=== PATIENT | female | born 2005 | race Caucasian/White ===

== ENCOUNTER 2024-11-08 15:49 | Emergency (ER) | payer OTHER, SELFPAY ==
[2024-11-08 16:13] VITALS: BP 124/74; PULSE 76; RESP 14; TEMP 36.1; O2SAT 99; BMI 33.4
[2024-11-08 20:10] VITALS: BP 134/72; PULSE 86; RESP 16; TEMP 36.2; O2SAT 100
--- NOTE | 2024-11-08 20:12 | PC.NURSE ---
Pt states that she has a history of ovarian cysts. She is from [place] and states that it has been over 1 year since she has had a cyst. Normally she gets an ultrasound to rule out.
[2024-11-08 21:26] LABS: Add Manual Diff / Slide Review NO; Hematocrit 39.0 % (36-46); Hemoglobin 13.8 g/dL (12.0-16.0); Lymphocytes Absolute Auto 3100 /uL (1100-4500); Mean Corpuscular HGB Conc 35.3 % (30-36); Mean Corpuscular Hemoglobin 32.3 PG (26-34); Mean Corpuscular Volume 91.5 fL (80-100); Platelet Count 402 X10^3/uL (150-400)
[2024-11-08 21:35] LABS: Alanine Aminotransferase 18 IU/L (<35); Albumin 4.5 g/dL (3.5-5.0); Albumin Globulin Ratio 1.3 (1.0-2.8); Alkaline Phosphatase 73 U/L (38-126); Blood Urea Nitrogen 9 mg/dL (7-17); Calcium 9.2 mg/dL (8.4-10.2); Carbon Dioxide 28 mmol/L (22-32); Chloride 102 mmol/L (98-107); Estimated Glomerular Filt Rate > 60 mL/min (>60); Globulin 3.5 g/dL (1.7-4.1); Glucose 115 mg/dL (70-99); HEMOLYSIS < 15 (0-50); Lipase 63 U/L (23-300); Potassium 4.0 mmol/L (3.4-5.1); Sodium 139 mmol/L (137-145); Total Protein 8.0 g/dL (6.3-8.2)
[2024-11-08 23:13] VITALS: BP 119/75; PULSE 84; RESP 16; TEMP 36.2; O2SAT 99
== END 2024-11-08 23:16 | disposition left against medical advice (07) ==
PROVIDERS: Emergency Provider Emergency Medicine
DX: R10.2 Pelvic and perineal pain (principal); R11.0 Nausea; Z87.42 Personal history of other diseases of the female genital tract
CPT/HCPCS: 36415; 80053; 81003; 81025; 83690; 85025; 99283